=== PATIENT | male | born 1975 | race Caucasian/White ===

== ENCOUNTER → 2016-10-11 | Outpatient (REF) | LOC: ZLAB.WCH 08:56 | DX: Z01.89 Encounter for other specified special examinations (principal) ==

== ENCOUNTER → 2017-02-27 | Outpatient (REF) | LOC: ZLAB.WCH 10:44 | DX: Z01.89 Encounter for other specified special examinations (principal) ==

== ENCOUNTER 2021-03-30 07:57 | Emergency (ER) | payer BC ==
[~2021-03-30] VITALS: Ht 180.3 cm; Wt 97.7 kg
[2021-03-30 08:12] VITALS: BP 170/114; TEMP 99.1
[2021-03-30] MEDS ORDERED: PERCOCET 325 MG1 TA2 PO (08:47)
[2021-03-30] MEDS ORDERED: MEDROL 4MG DOSPA4 MG PO (08:47)
[2021-03-30 09:14] VITALS: PULSE 90
== END 2021-03-30 09:14 | disposition home or self-care (01) ==
LOC: COL.ER 07:57
DX: M54.16 Radiculopathy, lumbar region (principal); F17.210 Nicotine dependence, cigarettes, uncomplicated; Z87.39 Personal history of other diseases of the musculoskeletal system and connective tissue; Z98.890 Other specified postprocedural states; Z88.5 Allergy status to narcotic agent
CPT/HCPCS: J1885; J2360

== ENCOUNTER 2021-10-07 12:45 | Outpatient (RCR) | payer BC ==
[~2021-10-07 12:45] MED LIST: MEDROL 4MG DOSPA4 MG PO; PERCOCET 325 MG1 TA2 PO
== END 2021-10-11 | disposition home or self-care (01) ==
LOC: WSPT
DX: M54.16 Radiculopathy, lumbar region (principal); M48.061 Spinal stenosis, lumbar region without neurogenic claudication

== ENCOUNTER 2021-11-04 15:00 | Outpatient (RCR) | payer BC | END 2021-11-11 | disposition home or self-care (01) | LOC: WSPT | DX: M54.16 Radiculopathy, lumbar region (principal); M48.061 Spinal stenosis, lumbar region without neurogenic claudication ==